=== PATIENT | female | born 1960 | race Caucasian/White ===

== ENCOUNTER 2016-10-30 09:55 | Emergency (ER) | payer OTHER ==
--- NOTE | 2016-10-30 13:18 | ED NURSING NOTES ---
Clinical Report - Nurses [facility] [address] [place] [address] 10/30/2016 9:58 Patient: NAVA VALLES TRIAGE Triage time 10:23. Acuity: LEVEL 3. Chief Complaint: ABDOMINAL PAIN, LOW BACK PAIN and RIGHT-SIDED and LEFT-SIDED FLANK PAIN (blood in the urine. Nausea, no vomiting). Alert. No acute distress. SEPSIS SCREEN: Sepsis Screen: negative. Negative (no infection suspected/documented). --10:34 Yaneli Mims R.N. 10:23 10/30/16. BP: 107/62. HR: 58. RR: 18. O2 saturation: 100%. Temp: 97.8 F. Pain level now: 10. --10:34 Yaneli Mims R.N. Weight: 36.2 kg stated. Height/Length: 61 inches Per Patient. BMI: 15.1. --10:32 Yaneli Mims R.N. Medications Robaxin Oral 750 mg, as needed. --10:24 Yaneli Mims R.N. Ibuprofen Oral 800 mg, as needed. --10:25 Yaneli Mims R.N. ALBUTEROL INHALER. --10:25 Yaneli Mims R.N. Omeprazole Oral 20 mg, as needed. --10:26 Yaneli Mims R.N. Ranitidine HCl Oral 75 mg, as needed. --10:26 Yaneli Mims R.N. MiraLax Oral, daily. --10:27 Yaneli Mims R.N. Vits swapna, c, d susan;y . --10:27 Yaneli Mims R.N. Levothyroxine Sodium Oral 25 mcg, daily. --10:30 Yaneli Mims R.N. Medication/allergy information source: the patient. --10:34 Yaneli Mims R.N. Allergies No Known Drug Allergy. --10:27 Yaneli Mims R.N. History Arrived by private vehicle. Historian: patient. Primary physician ([facility]). ( drove self). This started yesterday. She has had cramping, constant abdominal pain. The pain is described as located in the lower abdomen and radiating to the back and associated with nausea. She has had hematuria (pos blood in urine or stool). Last oral intake by patient was breakfast. 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 PAST MEDICAL HX: Immunizations: up-to-date. The patient has had a hysterectomy. SOCIAL HX: Smoker- current status unknown. No alcohol use or drug use. FALL RISK ASSESSMENT: Fall risk assessment completed. No fall risk identified. NUTRITIONAL RISK ASSESSMENT: The nutritional risk assessment revealed no deficiencies. FUNCTIONAL ASSESSMENT: Functional assessment: no impairments noted. LEARNING NEEDS ASSESSMENT: The learning needs assessment revealed no barriers. SKIN INTEGRITY ASSESSMENT: Skin integrity risk assessment completed. No skin integrity risk identified. --10:34 Yaneli Mims R.N. PROBLEMS: Adverse Drug Reaction. Abdominal Pain. Back Pain. Constipation. Chest Pain. Sinus bradycardia. Colon polyps. Disturbance of Sensation. Headache. Anxiety Reaction. UTI - Urinary Tract Infection. Thyroid Disease. Aneurysm, Cerebral. Peritonsillar Abscess. Febrile Illness. Immunizations. Hypothyroidism. Brain aneurysm. Asthma. Fibromyalgia. --10:30 Yaneli Mims R.N. ADDITIONAL SURGERIES: Bladder repain as child . Colonoscopy. . Ectopic preg . Hernia Repair. Hysterectomy. --10:30 Yaneli Mims R.N. Interventions ID band on patient. To room. --10:34 Yaneli Mims R.N. PHYSICAL ASSESSMENT Ambulatory to room. Patient gowned. GENERAL / NEURO / PSYCH: Alert. Oriented X 4. Appears in pain and anxious. HEENT: Mucous membranes are pink. RESPIRATORY: Respirations not labored. CVS: Capillary refill less than 2 seconds. GI / : Abdominal tenderness in the lower abdomen. SKIN: Skin is warm and dry. --10:35 Yaneli Mims R.N. NURSING PROGRESS NOTES Patient gowned. Head of bed elevated. Two patient identifiers checked. Call light placed in reach. Side rails up x 1. Bed placed in lowest position. Brakes of bed on. Patient ready for evaluation. --10:36 Yaneli Mims R.N. 10:44 10/30/2016 Site #1 started via IV in the left antecubital space with an 20g angiocath, with aseptic technique and good blood return; one attempt. Blood drawn: rainbow set. Labeled in the presence of the patient and sent to the lab. Saline lock flushed with 10 mL saline. --10:44 Yaneli Mims R.N. 10:50 10/30/2016 Started bag #1 1000 mL IV Fluids IV NS (Saline); at 1000 mL/hr over 1 hour(s) via site #1 via IV pump. Allergies verified and confirmed 5 rights. IV patency established. IV site checked: no pain, redness, or swelling. IV flushed thoroughly pre- and post-medication administration. --10:50 Yaneli Mims R.N. 12:00 10/30/2016 IV Fluids IV NS Bag Change: bag #1 infused. Total amount infused: 1000. STARTED bag #2 (1000 mL) at 150 mL/hr via IV pump. Confirmed 5 rights. IV patency established. IV site checked: no pain, redness, or swelling. IV flushed thoroughly. --13:12 Yaneli Mims R.N. 13:38 10/30/2016 Site #1 removed upon discharge. Catheter intact. Bandaid applied. --13:43 Yaneli Mims R.N. 13:38 10/30/2016 IV Fluids IV NS Discontinued: bag #2 STOPPED. Total amount infused: 125 mL. IV patency established. IV site checked: no pain, redness, or swelling. IV flushed thoroughly. --13:43 Yaneli Mims R.N. DISPOSITION / DISCHARGE 13:38. Condition at departure: improved. No learning barriers present. Discharge instructions provided and reviewed with the patient. Patient verbalized understanding. Written instructions provided in Serbian. The patient was discharged home and accompanied by spouse. She left the Emergency Department ambulatory and via private vehicle. Spouse driving. Medication list reviewed and validated. --13:47 Yaneli Mims R.N. 13:36 10/30/16. BP: 110/60. HR: 63. RR: 18. O2 saturation: 100%. Temp: 98.6 F. Pain level now: 0/10. 12:45 10/30/16. BP: 110/57. HR: 59. RR: 16. O2 saturation: 100%. Pain level now: 0/10. 11:34 10/30/16. BP: 100/59. HR: 62. RR: 16. O2 saturation: 98%. Pain level now: 0. 10:23 10/30/16. BP: 107/62. HR: 58. RR: 18. O2 saturation: 100%. Temp: 97.8 F. Pain level now: 02/19. --13:47 Yaneli Mims R.N. Locked/Released at 10/30/2016 13:48 by Yaneli Mims R.N.
--- NOTE | 2016-10-30 13:18 | ED ORDER SUMMARY ---
..... Patient: NAVA VALLES OrderSheet [facility] VisitID: [id number] [address] [place] [address] 55y, F Registration Date/Time: 10/30/2016 ORDER SHEET Weight: 36.2 kg (stated) Allergies: No Known Drug Allergy GENERAL ORDERS: CBC w Diff Urgent (10:10/30/2016 Celena KRAUSE) (Ack 10:25 NHouse ER Tech1) (10:50 SRoberts R.N.) CMP Urgent (10:10/30/2016 Celena KRAUSE) (Ack 10:25 NHouse ER Tech1) (10:50 SRoberts R.N.) UA-Culture if indicated Urgent (10:10/30/2016 Celena KRAUSE) (Ack 10:25 NHouse ER Tech1) (10:36 SRoberts R.N.) Amylase Urgent (10:10/30/2016 Celena KRAUSE) (Ack 10:25 NHouse ER Tech1) (10:50 SRoberts R.N.) Lipase Urgent (10:10/30/2016 Celena KRAUSE) (Ack 10:25 NHouse ER Tech1) (10:50 SRoberts R.N.) PT with INR Urgent (12:10/30/2016 Celena KRAUSE) (12:26 NHouse ER Tech1) PTT Urgent (12:10/30/2016 Celena KRAUSE) (12:26 NHouse ER Tech1) MEDICATION ORDERS: IV FLUIDS: IV NS : initial bolus 1000 mL (1000 mL/hr), then 150 mL/hr for 4h (NOW); Urgent (10:10/30/2016 Celena KRAUSE) (10:50 SRoberts R.N.) ORDER SHEET NOTES: [Electronically signed by Yaneli Mims R.N. (13:48 10/30/2016)] [Electronically signed by Tobi Brandt MD (16:42 10/30/2016)] [Electronically locked/signed by Yaneli Mims R.N. (13:48 10/30/2016)]
--- NOTE | 2016-10-30 13:18 | ED CLINICAL REPORT ---
Clinical Report - Physicians/Mid Levels [facility] [address] [place] [address] 10/30/2016 9:58 Patient: NAVA VALLES Time Seen: 10:39. Arrived- By private vehicle. Historian- patient. HISTORY OF PRESENT ILLNESS Chief Complaint: RECTAL BLEEDING. This started today and has been moderate. It has been intermittent. The patient has had rectal bleeding described as bright red blood on toilet paper and blood mixed with stool but not had dark stools or rectal pain. REVIEW OF SYSTEMS The patient has had crampy, constant abdominal pain (R flank intermittently for one week). The pain is described as located in the right side of the abdomen. She has had frequency and incontinence of urine (she noticed blood on her toilet paper when she wiped after urinating last night). No urgency or hesitancy of urination. No painful urination. All systems otherwise negative, except as recorded above. PAST HISTORY Problems: Adverse Drug Reaction. Abdominal Pain. Back Pain. Constipation. Chest Pain. Sinus bradycardia. Colon polyps. Disturbance of Sensation. Headache. Anxiety Reaction. Thyroid Disease. Aneurysm, Cerebral. Peritonsillar Abscess. Febrile Illness. Hypothyroidism. Brain aneurysm. Asthma. Fibromyalgia. Additional Surgeries: Bladder repain as child . Colonoscopy. . Ectopic preg . Hernia Repair. Hysterectomy. Medications: Levothyroxine Sodium Oral 25 mcg, daily. Vits multi, c, d susan;y . MiraLax Oral, daily. Ranitidine HCl Oral 75 mg, as needed. Omeprazole Oral 20 mg, as needed. ALBUTEROL INHALER. Ibuprofen Oral 800 mg, as needed. Robaxin Oral 750 mg, as needed. Allergies: No Known Drug Allergy. SOCIAL HISTORY Smoker- current status unknown. No alcohol use or drug use. FAMILY HISTORY Diabetes in first-degree relative (mother and father) and grandparent; heart disease in first-degree relative (mother and father). ADDITIONAL NOTES The nursing notes have been reviewed. PHYSICAL EXAM Vital Signs: 10/30/2016 10:23 BP: 107/62. HR: 58. RR: 18. O2 saturation: 100%. Temp: 97.8 F. Pain level now: 5/10. Have been reviewed. Appearance: Alert. No acute distress. She is moderately obese. Eyes: Pupils equal, round and reactive to light. ENT: Pharynx normal. Neck: Normal inspection. Neck supple. CVS: Normal heart rate and rhythm. Heart sounds normal. Respiratory: No respiratory distress. Breath sounds normal. Abdomen: Soft and nontender. Bowel sounds normal. No organomegaly. No mass. Obese. Back: Normal inspection. No CVA tenderness. Anoscopy: Internal and thrombosed hemorrhoid noted. No evidence of rectal bleeding visualized. Rectal: Stool heme negative. (POC test reference range: negative). Extremities: Extremities exhibit normal ROM. No calf tenderness. No lower extremity edema. LABS, X-RAYS, AND EKG Laboratory Tests: UA-Culture if indicated: (HECTOR: 10/30/2016 10:10) ( [facility] 10/30/2016 11:07) Final results Test Result Flag Units (Reference) URINE COLOR YELLOW URINE APPEARANCE CLEAR URINE GLUCOSE NEGATIVE (NEGATIVE) URINE BILIRUBIN NEGATIVE (NEGATIVE) URINE KETONE NEGATIVE (NEGATIVE) URINE SPECIFIC GRAVITY 1.025 (1.010-1.030) URINE PH 6.0 (5.0-8.0) URINE PROTEIN NEGATIVE (NEGATIVE) URINE UROBILINOGEN 0.2 EU/dL (0.2-1.0) URINE NITRITE NEGATIVE (NEGATIVE) URINE BLOOD NEGATIVE (NEGATIVE) URINE LEUK ESTERASE NEGATIVE (NEGATIVE) URINE RBC NONE SEEN rbc/hpf (0-1) URINE WBC NONE SEEN wbc/hpf (0-1) URINE EPITHELIAL CELLS 1-3 EPI/hpf (0-5) 1+ MUCOUS URINE BACTERIA NONE SEEN (NONE SEEN) URINE COMMENT CULT NOT INDICATED URINE CULTURES ARE SET-UP BASED ON THE FOLLOWING CRITERIA:POSITIVE NITRITEPOSITIVE LEUKOCYTE ESTERASEGREATER THAN 10 WHITE BLOOD CELLSMODERATE (2+) OR GREATER BACTERIA CBC w Diff: (HECTOR: 10/30/2016 10:40) ( [facility] 10/30/2016 11:27) Final results Test Result Flag Units (Reference) POLY % 44 L % (50-75) BAND % 1 % (0-8) LYMPH 41 H % (25-40) MONO 6 % (3-14) EOSINOPHIL % 5 H % (0-4) BASOPHIL % 3 H % (0-2) METAMYELOCYTE % 0 % (0-1) MYELOCYTE 0 % (0-1) OTHER CELL TYPE 0 RBC MORPHOLOGY NORMAL RBC POP WHITE BLOOD COUNT 5.5 K/uL (4.5-11.5) RED BLOOD COUNT 4.71 M/uL (4.00-5.20) HEMOGLOBIN 13.8 gm/dL (12.0-16.0) HEMATOCRIT 40.2 % (36.0-46.0) MEAN CELL VOLUME 85 fL (80-100) MEAN CORPUSCULAR HGB 29 pg (26-34) MEAN CORPUSCULAR HGB CONC 34 g/dL (31-37) RED CELL DISTRIBUTION WIDTH 13.2 % (11.6-14.8) PLATELET COUNT 235 K/uL (150-400) PT with INR: (HECTOR: 10/30/2016 10:40) ( [facility] 10/30/2016 12:44) Final results Test Result Flag Units (Reference) INR 1.0 (0.8-1.2) Low Intensity Therapy: INR 1.5-2.0 PT range 18.5-23.1Mod.Intensity Therapy: INR 2.0-3.0 PT range 23.1-31.5High Intensity Therapy: INR 2.5-3.5 PT range 27.4-35.5High Intensity Therapy 2: INR 3.0-4.0 PT range 31.5-39.3 APTT 27 SECONDS (24-34) CMP: (HECTOR: 10/30/2016 10:40) ( [facility] 10/30/2016 12:05) Final results Test Result Flag Units (Reference) GLUCOSE 82 mg/dL (70-110) BUN 21 H mg/dL (7-18) CREATININE 0.8 mg/dL (0.6-1.3) Estimated GFR >60 mL/min Estimated GFR- >60 mL/min Note: Persistent reduction over 3 months in eGFR<60 mL/min/1.73 m2 defines CKD. Patients with eGFR values>=60 mL/min/1.73 m2 may also have CKD if evidence ofpersistent proteinuria. Additional information may be foundat www.kidney.org. SODIUM 140 mmol/L (136-145) POTASSIUM 4.0 mmol/L (3.5-5.1) CHLORIDE 106 mmol/L (98-107) CARBON DIOXIDE 29 mmol/L (21-32) CALCIUM 8.7 mg/dL (8.5-10.1) TOTAL PROTEIN 6.9 g/dL (6.4-8.2) ALBUMIN 3.6 g/dL (3.3-5.0) BILIRUBIN, TOTAL 0.4 mg/dL (0.0-1.0) ALKALINE PHOSPHATASE 61 U/L (46-116) AST (SGOT) 18 U/L (15-37) ALT (SGPT) 34 U/L (12-78) LIPASE 243 U/L (73-393) AMYLASE 102 U/L (25-115) . PROGRESS AND PROCEDURES Course of Care: Patient is stable. Patient/family counseled. Old medical records reviewed. Disposition: Discharged. Condition: stable. CLINICAL IMPRESSION Constipation (chronically). Rectal bleed from internal hemorrhoids. INSTRUCTIONS Drink plenty of fluids. Warnings: Further evaluation is necessary. GENERAL WARNINGS: Return or contact your physician immediately if your condition worsens or changes unexpectedly, if not improving as expected, or if other problems arise. Your Current Medications: CONTINUE TAKING THE FOLLOWING MEDICATIONS: ALBUTEROL INHALER*. Ibuprofen Oral : 800 mg, prn. Levothyroxine Sodium Oral : 25 mcg daily. MiraLax Oral : daily. Omeprazole Oral : 20 mg, prn. Ranitidine HCl Oral : 75 mg, prn. Robaxin Oral : 750 mg, prn. Vits swapna, c, d susan;y *. Follow-up: Follow up with your doctor as scheduled. Understanding of the discharge instructions verbalized by patient. (Electronically signed by Tobi Brandt MD 10/30/2016 16:42)
--- NOTE | 2016-10-30 13:18 | ED NURSING NOTES ---
Clinical Report - Nurses [facility] [address] [place] [place] [address] 10/30/2016 9:58 Patient: NAVA VALLES TRIAGE Triage time 10:23. Acuity: LEVEL 3. Chief Complaint: ABDOMINAL PAIN, LOW BACK PAIN and RIGHT-SIDED and LEFT-SIDED FLANK PAIN (blood in the urine. Nausea, no vomiting). Alert. No acute distress. SEPSIS SCREEN: Sepsis Screen: negative. Negative (no infection suspected/documented). --10:34 Yaneli Mims R.N. 10:23 10/30/16. BP: 107/62. HR: 58. RR: 18. O2 saturation: 100%. Temp: 97.8 F. Pain level now: 10. --10:34 Yaneli Mims R.N. Weight: 36.2 kg stated. Height/Length: 61 inches Per Patient. BMI: 15.1. --10:32 Yaneli Mims R.N. Medications Robaxin Oral 750 mg, as needed. --10:24 Yaneli Mims R.N. Ibuprofen Oral 800 mg, as needed. --10:25 Yaneli Mims R.N. ALBUTEROL INHALER. --10:25 Yaneli Mims R.N. Omeprazole Oral 20 mg, as needed. --10:26 Yaneli Mims R.N. Ranitidine HCl Oral 75 mg, as needed. --10:26 Yaneli Mims R.N. MiraLax Oral, daily. --10:27 Yaneli Mims R.N. Vits swapna, c, d susan;y . --10:27 Yaneli Mims R.N. Levothyroxine Sodium Oral 25 mcg, daily. --10:30 Yaneli Mims R.N. Medication/allergy information source: the patient. --10:34 Yaneli Mims R.N. Allergies No Known Drug Allergy. --10:27 Yaneli Mims R.N. History Arrived by private vehicle. Historian: patient. Primary physician ([facility]). ( drove self). This started yesterday. She has had cramping, constant abdominal pain. The pain is described as located in the lower abdomen and radiating to the back and associated with nausea. She has had hematuria (pos blood in urine or stool). Last oral intake by patient was breakfast. 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 PAST MEDICAL HX: Immunizations: up-to-date. The patient has had a hysterectomy. SOCIAL HX: Smoker- current status unknown. No alcohol use or drug use. FALL RISK ASSESSMENT: Fall risk assessment completed. No fall risk identified. NUTRITIONAL RISK ASSESSMENT: The nutritional risk assessment revealed no deficiencies. FUNCTIONAL ASSESSMENT: Functional assessment: no impairments noted. LEARNING NEEDS ASSESSMENT: The learning needs assessment revealed no barriers. SKIN INTEGRITY ASSESSMENT: Skin integrity risk assessment completed. No skin integrity risk identified. --10:34 Yaneli Mims R.N. PROBLEMS: Adverse Drug Reaction. Abdominal Pain. Back Pain. Constipation. Chest Pain. Sinus bradycardia. Colon polyps. Disturbance of Sensation. Headache. Anxiety Reaction. UTI - Urinary Tract Infection. Thyroid Disease. Aneurysm, Cerebral. Peritonsillar Abscess. Febrile Illness. Immunizations. Hypothyroidism. Brain aneurysm. Asthma. Fibromyalgia. --10:30 Yaneli Mims R.N. ADDITIONAL SURGERIES: Bladder repain as child . Colonoscopy. . Ectopic preg . Hernia Repair. Hysterectomy. --10:30 Yaneli Mims R.N. Interventions ID band on patient. To room. --10:34 Yaneli Mims R.N. PHYSICAL ASSESSMENT Ambulatory to room. Patient gowned. GENERAL / NEURO / PSYCH: Alert. Oriented X 4. Appears in pain and anxious. HEENT: Mucous membranes are pink. RESPIRATORY: Respirations not labored. CVS: Capillary refill less than 2 seconds. GI / : Abdominal tenderness in the lower abdomen. SKIN: Skin is warm and dry. --10:35 Yaneli Mims R.N. NURSING PROGRESS NOTES Patient gowned. Head of bed elevated. Two patient identifiers checked. Call light placed in reach. Side rails up x 1. Bed placed in lowest position. Brakes of bed on. Patient ready for evaluation. --10:36 Yaneli Mims R.N. 10:44 10/30/2016 Site #1 started via IV in the left antecubital space with an 20g angiocath, with aseptic technique and good blood return; one attempt. Blood drawn: rainbow set. Labeled in the presence of the patient and sent to the lab. Saline lock flushed with 10 mL saline. --10:44 Yaneli Mims R.N. 10:50 10/30/2016 Started bag #1 1000 mL IV Fluids IV NS (Saline); at 1000 mL/hr over 1 hour(s) via site #1 via IV pump. Allergies verified and confirmed 5 rights. IV patency established. IV site checked: no pain, redness, or swelling. IV flushed thoroughly pre- and post-medication administration. --10:50 Yaneli Mims R.N. 12:00 10/30/2016 IV Fluids IV NS Bag Change: bag #1 infused. Total amount infused: 1000. STARTED bag #2 (1000 mL) at 150 mL/hr via IV pump. Confirmed 5 rights. IV patency established. IV site checked: no pain, redness, or swelling. IV flushed thoroughly. --13:12 Yaneli iMms R.N. 13:38 10/30/2016 Site #1 removed upon discharge. Catheter intact. Bandaid applied. --13:43 Yaneli Mims R.N. 13:38 10/30/2016 IV Fluids IV NS Discontinued: bag #2 STOPPED. Total amount infused: 125 mL. IV patency established. IV site checked: no pain, redness, or swelling. IV flushed thoroughly. --13:43 Yaneli Mims R.N. DISPOSITION / DISCHARGE 13:38. Condition at departure: improved. No learning barriers present. Discharge instructions provided and reviewed with the patient. Patient verbalized understanding. Written instructions provided in Kyrgyz. The patient was discharged home and accompanied by spouse. She left the Emergency Department ambulatory and via private vehicle. Spouse driving. Medication list reviewed and validated. --13:47 Yaneli Mims R.N. 13:36 10/30/16. BP: 110/60. HR: 63. RR: 18. O2 saturation: 100%. Temp: 98.6 F. Pain level now: 0/10. 12:45 10/30/16. BP: 110/57. HR: 59. RR: 16. O2 saturation: 100%. Pain level now: 0/10. 11:34 10/30/16. BP: 100/59. HR: 62. RR: 16. O2 saturation: 98%. Pain level now: 0. 10:23 10/30/16. BP: 107/62. HR: 58. RR: 18. O2 saturation: 100%. Temp: 97.8 F. Pain level now: 02/19. --13:47 Yaneli Mims R.N. Locked/Released at 10/30/2016 13:48 by Yaneli Mims R.N.
--- NOTE | 2016-10-30 13:18 | ED ORDER SUMMARY ---
..... Patient: NAVA VALLES OrderSheet [facility] VisitID: [id number] [address] [place] [address] 55y, F Registration Date/Time: 10/30/2016 ORDER SHEET Weight: 36.2 kg (stated) Allergies: No Known Drug Allergy GENERAL ORDERS: CBC w Diff Urgent (10:10/30/2016 Celena KRAUSE) (Ack 10:25 NHouse ER Tech1) (10:50 SRoberts R.N.) CMP Urgent (10:10/30/2016 Celena KRAUSE) (Ack 10:25 NHouse ER Tech1) (10:50 SRoberts R.N.) UA-Culture if indicated Urgent (10:10/30/2016 Celena KRAUSE) (Ack 10:25 NHouse ER Tech1) (10:36 SRoberts R.N.) Amylase Urgent (10:10/30/2016 Celena KRAUSE) (Ack 10:25 NHouse ER Tech1) (10:50 SRoberts R.N.) Lipase Urgent (10:10/30/2016 Celena KRAUSE) (Ack 10:25 NHouse ER Tech1) (10:50 SRoberts R.N.) PT with INR Urgent (12:10/30/2016 Celena KRAUSE) (12:26 NHouse ER Tech1) PTT Urgent (12:10/30/2016 Celena KRAUSE) (12:26 NHouse ER Tech1) MEDICATION ORDERS: IV FLUIDS: IV NS : initial bolus 1000 mL (1000 mL/hr), then 150 mL/hr for 4h (NOW); Urgent (10:10/30/2016 Celena KRAUSE) (10:50 SRoberts R.N.) ORDER SHEET NOTES: [Electronically signed by Yaneli Mims R.N. (13:48 10/30/2016)] [Electronically signed by Tobi Brandt MD (16:42 10/30/2016)] [Electronically locked/signed by Yaneli Mims R.N. (13:48 10/30/2016)]
--- NOTE | 2016-10-30 16:43 | ED DISCHARGE INSTRUCTIONS ---
Patient: NAVA VALLES General Instructions [facility] VisitID: [id number] [place] [address] 55y, F Registration Date/Time: 10/30/2016 Constipation (chronically). Rectal bleed from internal hemorrhoids. INSTRUCTIONS Drink plenty of fluids. Warnings: Further evaluation is necessary. GENERAL WARNINGS: Return or contact your physician immediately if your condition worsens or changes unexpectedly, if not improving as expected, or if other problems arise. Your Current Medications: CONTINUE TAKING THE FOLLOWING MEDICATIONS: ALBUTEROL INHALER*. Ibuprofen Oral : 800 mg, prn. Levothyroxine Sodium Oral : 25 mcg daily. MiraLax Oral : daily. Omeprazole Oral : 20 mg, prn. Ranitidine HCl Oral : 75 mg, prn. Robaxin Oral : 750 mg, prn. Vits multi, c, d susan;y *. Follow-up: Follow up with your doctor as scheduled. Understanding of the discharge instructions verbalized by patient. ADDITIONAL INFORMATION Rectal Bleeding (Stable) Your exam today shows signs of blood in the stool. This is called rectal bleeding, because the blood passes through the rectum. However, the blood may not be coming from the rectum. Blood in the stool may be red or black in color. Red blood in the stool usually comes from the lower gastro-intestinal (GI) tract. This may be due to diverticulosis, polyps, colon inflammation or infection, anal fissure or hemorrhoids. In persons over 50 tumors and cancer of the intestinal tract may first show up as red blood in the stool. Upper GI bleeding causes the stool to turn black. This may occur with bleeding from the esophagus, stomach, duodenum or small intestine. Very small amounts of GI bleeding may not be visible and can only be discovered on a chemical test of the stool. You have not lost a large amount of blood and your condition appears stable at this time. It is very important to have a follow-up exam to determine the exact cause of your bleeding. Home Care: 1) You may resume normal activity as long as you feel well. 2) Avoid aspirin and anti-inflammatory drugs such as ibuprofen (Advil, Motrin) and naproxen (Aleve and Naprosyn). You may use acetaminophen (Tylenol) for pain. [ NOTE : If you have chronic liver disease, talk with your doctor before using acetaminophen.] 3) Avoid alcohol. Follow Up with your doctor or as advised by our medical staff. It is very important that you have further tests done to find the cause of your bleeding. Get Prompt Medical Attention if any of the following occur: -- Large amount of rectal bleeding (more than 1 cup of blood in 24 hours) -- Increasing abdominal pain -- Weakness, dizziness or fainting -- Vomiting blood (red or black color) Hemorrhoids,External A hemorrhoid is a local swelling of the veins around the rectum. These most often occur from repeated forceful straining during bowel movements or heavy lifting. It may also occur in the last few months of . A hemorrhoid feels like a soft lump. It may itch from time to time. When it is inflamed it becomes hard and very painful. Home Care: SITZ BATHS: Sit in a tub filled with about 6 inches of hot water. Allow the water to run in order to keep it hot for a total of 10-15 minutes. Repeat this three times a day until pain is relieved. Keep your stools soft to avoid the need to strain when having a bowel movement. Unless another medicine was prescribed, try the following: IF YOU ARE CONSTIPATED: You may use koil-kce-mbbxvxb laxatives such as MILK OF MAGNESIA (mild acting) or, DULCOLAX (if stronger action is needed). IF YOU ARE NOT CONSTIPATED but stools are hard, try taking Colace (docusate sodium) which is a stool softener. This will soften stools without producing diarrhea. Drinking extra fluids may also help. The use of creams applied to the hemorrhoid itself, such as ANUSOL or PREPARATION H, will be helpful to reduce pain and itching, and speed healing. Prevention: Avoid straining on the toilet by keeping stools soft. Increasing FIBER in your diet (fruits, cereals, vegetables and grains) will promote healthy bowel movement. If this is not working, you may use METAMUCIL and similar products. These are enyv-bxy-xodchwx fiber supplements. You must drink extra fluids when taking these to avoid constipation. Follow Up with your doctor if you do not begin to respond to the above treatment within the next few days. Get Prompt Medical Attention if any of the following occur: Large amount of rectal bleeding (more than 1 cup of blood in 24 hours) Increasing rectal pain or rectal pain that continues for more than three days of treatment Weakness, dizziness or fainting Vomiting blood (red or black color) High Fiber Diet Fiber is present in all fruits, vegetables, cereals and grains. Fiber passes through the body undigested. A high fiber diet helps food move through the intestinal tract. The added bulk is helpful in preventing constipation. In people with diverticulosis it serves to clean out the pouches along the colon wall while preventing new ones from forming. A high fiber diet also reduces the risk of colon cancer, decreases blood cholesterol and prevents high blood sugar in people with diabetes. The foods listed below are high in fiber and should be included in your diet. If you are not used to high fiber foods, start with 1 or 2 foods from this list. Every 3-4 days add a new one to your diet until you are eating 4 high fiber foods per day. This should give you 20-35 Gm of fiber/day. It is also important to drink a lot of water when you are on this diet (6-8 glasses a day). Water causes the fiber to swell and increases the benefit. Foods High In Dietary Fiber: BREADS: Made with 100% whole wheat flour; jo ann, wheat or rye crackers; tortillas, bran muffins CEREALS: Whole grain cereal with bran (Chex, Raisin Bran, [place] Bran), oatmeal, rolled oats, granola, wheat flakes, brown rice NUTS: Any nuts FRUITS: All fresh fruits along with edible skins, (bananas, citrus fruit, mangoes, pears, prunes, raisins, apples, pineapple, apricot, melon, jams and marmalades), fruit juices (especially prune juice) VEGETABLES: All types, preferably raw or lightly cooked: especially, celery, eggplant, potatoes,spinach, broccoli, brussel sprouts, winter squash, carrots, cauliflower, soybeans, lentils, fresh and dried beans of all kinds OTHER: Popcorn, any spices You have been given the following additional information: Rectal Bleed, Stable Hemorrhoids Diet, High Fiber (Electronically signed by Tobi Brandt MD 10/30/2016 16:42)
--- NOTE | 2016-10-30 16:43 | ED MED RECONCILIATION SUMMARY ---
Patient: NAVA VALLES Medication Reconciliation Report [facility] VisitID: [id number] [address] [place] [address] 55y, F Registration Date/Time: 10/30/2016 Weight: 36.2 kg Height/Length: 61 in. BMI: 15.1 ALLERGIES: No Known Drug Allergy The patient's Home Medications are listed below: CONTINUE TAKING THE FOLLOWING MEDICATIONS: ALBUTEROL INHALER Ibuprofen Oral 800 mg Levothyroxine Sodium Oral 25 mcg, daily MiraLax Oral, daily Omeprazole Oral 20 mg Ranitidine HCl Oral 75 mg Robaxin Oral 750 mg Vits multi, c, d susan;y The source(s) of the original Home Medication information: patient The following Medications were given to the patient in the Emergency Department: IV NS IV Fluids bolus 0, then 1000 mL/hr, administered: 10/30/2016 10:50:00 AM The following Medications were prescribed to the patient: None.
--- NOTE | 2016-10-30 16:43 | ED MAR SUMMARY ---
..... Medication Administration Record [facility] [address] [place] [address] Patient: NAVA VALLES Visit ID: [id number] 55y, F Weight: 36.2 kg Height/Length: 61 in BMI: 15.1 ALLERGIES: No Known Drug Allergy Start 10:50 10/30/2016 Yaneli Mims R.N., Stop 13:38 10/30/2016 Yaneli Mims R.N. Medication Administered: IV NS (SALINE), Dose: IV Fluids over 1 hour(s), Rate: 1000 mL/hr, Dispensed: 1000 mL bag, Site: #1 left AC. Medication Ordered: IV NS : initial bolus 1000 mL (1000 mL/hr), then 150 mL/hr for 4h (NOW); Urgent.
--- NOTE | 2016-10-30 16:43 | ED MAR SUMMARY ---
..... Medication Administration Record [facility] [address] [place] [place] [address] Patient: NAVA VALLES Visit ID: [id number] 55y, F Weight: 36.2 kg Height/Length: 61 in BMI: 15.1 ALLERGIES: No Known Drug Allergy Start 10:50 10/30/2016 Yaneli Mims R.N., Stop 13:38 10/30/2016 Yaneli Mims R.N. Medication Administered: IV NS (SALINE), Dose: IV Fluids over 1 hour(s), Rate: 1000 mL/hr, Dispensed: 1000 mL bag, Site: #1 left AC. Medication Ordered: IV NS : initial bolus 1000 mL (1000 mL/hr), then 150 mL/hr for 4h (NOW); Urgent.
--- NOTE | 2016-10-30 16:43 | ED MED RECONCILIATION SUMMARY ---
Patient: NAVA VALLES Medication Reconciliation Report [facility] VisitID: [id number] [address] [place] [address] 55y, F Registration Date/Time: 10/30/2016 Weight: 36.2 kg Height/Length: 61 in. BMI: 15.1 ALLERGIES: No Known Drug Allergy The patient's Home Medications are listed below: CONTINUE TAKING THE FOLLOWING MEDICATIONS: ALBUTEROL INHALER Ibuprofen Oral 800 mg Levothyroxine Sodium Oral 25 mcg, daily MiraLax Oral, daily Omeprazole Oral 20 mg Ranitidine HCl Oral 75 mg Robaxin Oral 750 mg Vits multi, c, d susan;y The source(s) of the original Home Medication information: patient The following Medications were given to the patient in the Emergency Department: IV NS IV Fluids bolus 0, then 1000 mL/hr, administered: 10/30/2016 10:50:00 AM The following Medications were prescribed to the patient: None.
== END 2016-10-30 13:38 | disposition home or self-care (01) ==
LOC: ED SRH 09:55
DX: K59.00 Constipation, unspecified (principal); K64.8 Other hemorrhoids; E03.9 Hypothyroidism, unspecified; J45.909 Unspecified asthma, uncomplicated; F17.200 Nicotine dependence, unspecified, uncomplicated; Z79.899 Other long term (current) drug therapy
CPT/HCPCS: 90004; 90100; 91643; 92235; 92530; 94001; 94060; 95059